=== PATIENT | female | born 1970 | race Caucasian/White ===

== ENCOUNTER 2021-07-21 06:53 | Emergency (ER) | payer OTHER ==
[~2021-07-21 06:53] MED LIST: ASCORBIC ACID500 MG PO; ASPIRIN325 MG PO; BACLOFEN 10MG T10 MG PO; CERTAGEN1 EACH PO; COLACE100 MG PO; DULCOLAX5 MG PO; FEOSOL325 MG PO; MOBIC15 MG PO; PERCOCET 5/3251 TAB PO; PROTONIX 40MG T40 MG PO; SUPER B COMPLE150 MG PO; TRAMADOL HCL50 MG PO; VITAMIN D PO; XARELTO10 MG PO
[2021-07-21 09:07] LABS: ALBUMIN 3.8 g/dL (3.4-5.0); BILIRUBIN - TOTAL 0.3 mg/dL (0.2-1.0); BUN/CREAT RATIO (CALC) 20.7 RATIO; CREATININE 0.87 mg/dL (0.51-0.95); GLOBULIN (CALCULATION) 3.1 g/dL; POTASSIUM 3.9 mmol/L (3.5-5.1); TOTAL PROTEIN 6.9 g/dL (6.4-8.2)
[2021-07-21 09:20] LABS: BILIRUBIN NEGATIVE (NEGATIVE); BLOOD TRACE-INTACT Ery/uL (NEGATIVE); CLARITY CLEAR (CLEAR); COLOR YELLOW (YELLOW); GLUCOSE (U) 1+ mg/dL (NORMAL); LEUKOCYTES NEGATIVE Leu/uL (NEGATIVE); NITRITE NEGATIVE (NEGATIVE); PROTEIN NEGATIVE (NEGATIVE); UROBILINOGEN 0.2 mg/dL (0.2-1.0)
[2021-07-21 09:21] LABS: BASOPHIL 0.5 % (0-2); EOSINOPHIL 0.4 % (0-5); HCT 41.4 % (37.0-47.0); HGB 14.1 g/dl (12.5-16.0); LYMPHOCYTE 17.8 % (15-48); MCH 29.2 pg (25.0-31.0); MCHC 34.1 g/dL (32.0-36.0); MCV 85.7 fL (78.0-100.0); MONOCYTE 3.1 % (0-12); MPV 10.4 fL (6.0-9.5); NEUTROPHIL 77.4 % (41-80); NRBC 0; RBC 4.83 M/uL (4.20-5.40); RDW 13.2 % (11.5-14.0); WBC 8.5 K/uL (4.0-10.5)
[2021-07-21 09:35] LABS: SQUAMOUS EPITHELIAL CELLS RARE
[2021-07-21 09:44] LABS: PLT 173 K/uL (150-400)
[2021-07-21] MEDS ORDERED: ONDANSETRON ODT4 MG PO (11:57)
[2021-07-21] MEDS ORDERED: FLOMAX0.4 MG PO (11:57)
[2021-07-21] MEDS ORDERED: NAPROXEN500 MG PO (11:57)
[2021-07-21] MEDS ORDERED: PERCOCET 7.5-31 EACH PO (11:57)
== END 2021-07-21 12:18 | disposition home or self-care (01) ==
LOC: FER 06:53
PROVIDERS: Emergency Medicine
DX: N13.2 Hydronephrosis with renal and ureteral calculous obstruction (principal); Z87.442 Personal history of urinary calculi; Z88.1 Allergy status to other antibiotic agents
CPT/HCPCS: 36415; 80053; 81001; 85025; 96372; J1170; J1885; J2405; J7030